=== PATIENT | male | born 1940 | race Caucasian/White ===

== ENCOUNTER → 2023-05-02 04:01 | Outpatient (REF) | payer MEDICARE, OTHER, SELFPAY | LOC: DHSLP 04:01 | PROVIDERS: ATTENDING PHYSICIAN Internal Medicine Critical Care Medicine; FAMILY PHYSICIAN Internal Medicine | DX: G47.33 Obstructive sleep apnea (adult) (pediatric) (principal); R09.02 Hypoxemia | CPT/HCPCS: 95806 ==

== ENCOUNTER → 2023-05-05 12:14 | Outpatient (REF) | payer MEDICARE, OTHER, SELFPAY | LOC: RAD 12:14 | PROVIDERS: ATTENDING PHYSICIAN Internal Medicine Critical Care Medicine; FAMILY PHYSICIAN Internal Medicine | DX: R06.02 Shortness of breath (principal); R60.0 Localized edema; J98.4 Other disorders of lung | CPT/HCPCS: 71046; 71250; 78582; 93005; A9540; A9567 ==